=== PATIENT | male | born 1960 | race Caucasian/White ===

== ENCOUNTER 2017-12-03 18:15 | Emergency (ER) | payer OTHER ==
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
[2017-12-03] MEDS ORDERED: IOPAMIDOL 76% 100 ML INFUS BTL 0 ML ONE (18:57)
[2017-12-03] MEDS ORDERED: NS(*) 0.9% 50 ML BAG 50 ML ONE (18:57)
[2017-12-03] MEDS ORDERED: IOPAMIDOL 76% 150 ML INFUS BTL 150 ML ONE (18:58)
[2017-12-03 19:06] LABS: PLATELET COUNT, AUTOMATED 174 K/uL (150-450)
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
[2017-12-03] MEDS ORDERED: DOXYCYCLINE HYCL 100 MG TAB PO ONE (20:10)
[2017-12-03] MEDS ORDERED: DOXY-179 PO (20:17)
[2017-12-03 20:23] VITALS: BP 132/82
== END 2017-12-03 20:27 | disposition home or self-care (01) ==
LOC: ER 18:21
DX: S71.111A Laceration without foreign body, right thigh, initial encounter (principal)
CPT/HCPCS: 85025; 99284; J7050; Q9967; 75635; 82040; 82247; 82310; 82374; 82435; 82565; 82947; 84075; 84132; 84155; 84295; 84450; 84460; 84520

== ENCOUNTER 2017-12-16 19:15 | Emergency (ER) | payer OTHER ==
[~2017-12-16 19:15] MED LIST: DOXY-179 PO
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
[2017-12-16 20:02] VITALS: BP 116/80
== END 2017-12-16 20:00 | disposition home or self-care (01) ==
LOC: ER 19:26
DX: S71.111D Laceration without foreign body, right thigh, subsequent encounter (principal)
CPT/HCPCS: 99281